=== PATIENT | male | born 1980 | race Caucasian/White ===

== ENCOUNTER 2017-01-08 09:15 | Emergency (ER) | payer OTHER, BC ==
[2017-01-08 09:32] VITALS: BP 103/59
[2017-01-08] MEDS ORDERED: Lidocaine 1% 50 ML MDV INJECT ONE (09:54)
--- NOTE | 2017-01-08 10:01 | EDM.PDOC ---
ED HPI GENERAL MEDICAL PROBLEM - General Chief Complaint: Bite:Animal, Insect Stated Complaint: RIGHT HAND INJURY Time Seen by Provider: 01/08/17 09:32 Source of Information: Reports: Patient History Limitations: Reports: No Limitations - History of Present Illness INITIAL COMMENTS - FREE TEXT/NARRATIVE: The patient presents with a dog bite to the right hand. 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 The dog was on a leash and the patient let him sniff his hand and when he pulled his hand back the dog bit his right hand. He has abrasions and a 1cm laceration between the 4th and 5th MCP joint. He has some mild numbness to the 5th digit. He has no other injuries. He is right handed. His tetanus is not up to date. Onset: Sudden Duration: Minutes: Location: Reports: Upper Extremity, Right (Hand) Quality: Reports: Sharp Severity: Mild Improves with: Reports: None Worsens with: Reports: None Context: Reports: Activity (He was working on for [employer] at [employer] ) Associated Symptoms: Reports: No Other Symptoms - Related Data Allergies Allergy/AdvReac Type Severity Reaction Status Date / Time No Known Allergies Allergy Verified 01/08/17 09:27 Home Meds: Home Meds Amoxicillin/Clavulanate K [Augmentin 875 MG/125 MG] 1 tab PO Q12HR #20 tablet [Rx] Past Medical History - Past Health History Medical/Surgical History: Denies Medical/Surgical History Social & Family History - Tobacco Use Smoking Status *Q: Former Smoker Used Tobacco, but Quit: Yes Month Tobacco Last Used: 2014 - Caffeine Use Caffeine Use: Reports: None - Recreational Drug Use Recreational Drug Use: No ED ROS GENERAL - Review of Systems Review Of Systems: See Below Constitutional: Reports: No Symptoms HEENT: Reports: No Symptoms Respiratory: Reports: No Symptoms Cardiovascular: Reports: No Symptoms Endocrine: Reports: No Symptoms GI/Abdominal: Reports: No Symptoms : Reports: No Symptoms Musculoskeletal: Reports: Other (Abrasions and laceration to the right hand) ED EXAM, ANIMAL BITE - Physical Exam Exam: See Below Exam Limited By: No Limitations General Appearance: Alert, No Apparent Distress Ears: Normal External Exam Nose: Normal Inspection Head: Atraumatic, Normocephalic Neck: Normal Inspection Respiratory/Chest: No Respiratory Distress Extremities: Other (Abrasion to the dorasal aspect of his right hand. 1cm laceration between the 4th and 5th MCP. He has mild numbness to the 5th digit.) ED ANIMAL BITE PROCEDURES - Laceration/Wound Repair Right Hand Lac/Wound Length In cm: 1 Appearance: Subcutaneous, Linear Distal NVT: Other (Mild numbness to right 5th finger) Anesthetic Type: Local Local Anesthesia - Lidocaine (Xylocaine): 1% Plain Skin Prep: Saline Exploration/Debridement/Repair: Wound Explored, In a Bloodless Field, Explored to Base Closed With: Sutures Suture Size: 4-0 # of Sutures: 1 Suture Type: Interrupted, Simple, Other (Vicryl) Tetanus Status Addressed: Yes Complications: No Course - Vital Signs Last Recorded V/S: Last Vital Signs Temp 96.3 F 01/08/17 09:23 Pulse 55 L 01/08/17 09:23 Resp 16 01/08/17 09:23 BP 103/59 L 01/08/17 09:23 Pulse Ox 100 01/08/17 09:23 - Orders/Labs/Meds Orders: Active Orders 24 hr Category Date Time Status Vaccines to be Administered [RC] PER UNIT ROUTINE Care 01/08/17 10:10 Ordered Hand Comp Min 3V Rt [CR] Stat Exams 01/08/17 09:54 Taken Diphth,Pertuss(Acell),Tet Vac [Adacel] Med 01/08/17 10:10 Once 0.5 ml IM .ONCE ONE Meds: Medications Discontinued Medications Generic Name Dose Route Start Last Admin Trade Name Tomq PRN Reason Stop Dose Admin Lidocaine HCl 50 ml 01/08/17 09:54 01/08/17 10:04 Xylocaine 1% INJECT 01/08/17 09:55 50 ml ONETIME ONE Administration - Re-Assessments/Exams Free Text/Narrative Re-Assessment/Exam: 01/08/17 10:11 The x-ray of his hand looks good. I sutured the laceration. I will get him on some augmentin. Departure - Departure Time of Disposition: 10:15 Disposition: Home, Self-Care 01 Condition: Good Clinical Impression: Dog bite of right hand Qualifiers: Encounter type: initial encounter Qualified Code(s): S61.451A - Open bite of right hand, initial encounter; W54.0XXA - Bitten by dog, initial encounter Laceration of right hand Qualifiers: Encounter type: initial encounter Foreign body presence: without foreign body Qualified Code(s): S61.411A - Laceration without foreign body of right hand, initial encounter - Discharge Information Prescriptions: Amoxicillin/Clavulanate K [Augmentin 875 MG/125 MG] 1 tab PO Q12HR #20 tablet Forms: ED Department Discharge Additional Instructions: Soak your hand in warm soapy water 2 times per day and apply antibiotics after. The suture is absorbable and will fall out in 10 to 14 days. If it does not you can have it removed. Look for any signs of infection such as redness, swelling, pain or drainage and return. We up dated your tetanus today. You are good for 10 days. Please return if you are worse. - My Orders Last 24 Hours: My Active Orders 01/08/17 09:54 Hand Comp Min 3V Rt [CR] Stat 01/08/17 10:10 Vaccines to be Administered [RC] PER UNIT ROUTINE Diphth,Pertuss(Acell),Tet Vac [Adacel] 0.5 ml IM .ONCE ONE - Assessment/Plan Last 24 Hours: My Active Orders 01/08/17 09:54 Hand Comp Min 3V Rt [CR] Stat 01/08/17 10:10 Vaccines to be Administered [RC] PER UNIT ROUTINE Diphth,Pertuss(Acell),Tet Vac [Adacel] 0.5 ml IM .ONCE ONE
[2017-01-08] MEDS ORDERED: Diphtheria,Pertussis(Acell),Tetanus Vaccine 0.5 ML SDV IM ONE (10:10)
--- NOTE | 2017-01-08 10:45 | CR ---
Right hand: Four views of the right hand were obtained. Comparison: No previous study. No opaque foreign object is seen. Joint spaces are preserved. No fracture, dislocation or other bony abnormality is seen. Soft tissue air is seen between the fourth and fifth digits and along the opposite side of the fifth finger. Impression: 1. No bony abnormality identified on four-view right hand study. 2. Soft tissue air. Diagnostic code #2
== END 2017-01-08 10:30 | disposition home or self-care (01) ==
LOC: JD.ED 09:15
DX: S61.411A Laceration without foreign body of right hand, initial encounter (principal); Z87.891 Personal history of nicotine dependence; Z23 Encounter for immunization; W54.0XXA Bitten by dog, initial encounter
CPT/HCPCS: 12001; 73130-26-RT; 73130-RT; 90471; 90715; 99283; 99284-25